=== PATIENT | female | born 1995 | race Caucasian/White ===

== ENCOUNTER 2020-03-31 05:53 | Emergency (ER) | payer SELFPAY ==
[~2020-03-31] VITALS: Ht 162.6 cm; Wt 73.5 kg
[2020-03-31 05:57] VITALS: BP 126/88; Ht 162.6 cm; Wt 73.5 kg
== END 2020-03-31 08:02 | disposition home or self-care (01) ==
LOC: ED 05:53
DX: S62.306B Unspecified fracture of fifth metacarpal bone, right hand, initial encounter for open fracture (principal); F10.129 Alcohol abuse with intoxication, unspecified; X58.XXXA Exposure to other specified factors, initial encounter; Y93.89 Activity, other specified; Y92.89 Other specified places as the place of occurrence of the external cause; Y99.8 Other external cause status